=== PATIENT | female | born 1995 | race Caucasian/White ===

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

== ENCOUNTER 2017-03-24 14:28 | Emergency (ER) | payer OTHER ==
[~2017-03-24 14:28] MED LIST changes: +CEPH-460 PO; -CYCL5TAB PO; -IBUP800T23 PO; -KETO10 PO
[2017-03-24 14:30] VITALS: BP 128/63; PULSE 77; RESP 20; TEMP 98.3; O2SAT 97
[2017-03-24] MEDS ORDERED: TRAM50TA PO (15:05)
--- NOTE | 2017-03-24 15:05 | PD ---
HPI Chief Complaint: Pain: Acute or Chronic Time Seen by Provider: 14:51 Travel History International Travel<30 days: No Contact w/Intl Traveler<30days: No Traveled to known affect area: No History of Present Illness HPI The patient was seen and examined in the presence of the nurse. This patient complains of having migraine headache. She gets one or 2 per month on average. She usually takes Advil when she gets one. Symptom severity is moderate. Duration one day. No fever or head injury. PFSH Past Medical History Medical History: Denies Significant Hx Developmental Delay: No Diminished Hearing: No Immunizations Current: Yes (UTD) Tetanus Vaccination: > 5 Years Influenza Vaccination: No ?: Unknown LMP: MAR 06 2017 Past Surgical History Surgical History: No Previous Surgery Social History Alcohol Use: No Tobacco Use: No Substance Use: No Allergies-Medications (Allergen,Severity, Reaction): Coded Allergies: No Known Allergies (Unverified , 03/24/17) Reported Meds & Prescriptions Reported Meds & Active Scripts Active No Active Prescriptions or Reported Medications Review of Systems General / Constitutional: No: Fever HENT: Positive: Headaches Cardiovascular: No: Chest Pain or Discomfort Physical Exam Narrative GENERAL: Well-nourished, well-developed patient in no apparent distress. SKIN: Focused skin assessment reveals no rash and nodules. Skin is Warm and dry. HEAD: Atraumatic. Normocephalic. EYES: Pupils equal and round. No scleral icterus. No injection or drainage. ENT: No nasal bleeding or discharge. Mucous membranes pink and moist. NECK: Trachea midline. No JVD. CARDIOVASCULAR: Regular rate and rhythm. No murmur appreciated. RESPIRATORY: No accessory muscle use. Clear to auscultation. Breath sounds equal bilaterally. GASTROINTESTINAL: Abdomen soft, non-tender, nondistended. Hepatic and splenic margins not palpable. MUSCULOSKELETAL: No obvious deformities. No clubbing. No cyanosis. No edema. NEUROLOGICAL: Awake and alert. No obvious cranial nerve deficits. Motor grossly within normal limits. Normal speech. PSYCHIATRIC: Appropriate mood and affect; insight and judgment normal. Data Data Last Documented VS Vital Signs Date Time Temp Pulse Resp B/P (MAP) Pulse Ox O2 Delivery O2 Flow Rate FiO2 03/24/17 14:30 98.3 77 20 128/63 (84) 97 MDM Medical Decision Making Medical Screen Exam Complete: Yes Emergency Medical Condition: Yes Medical Record Reviewed: Yes Differential Diagnosis Differential diagnosis includes migraine, tension headache, cluster headache, meningitis. Narrative Course I have reviewed the patient's electronic medical record. Patient's exam and vital signs are normal. No red flags to suggest emergent imaging is indicated. Wrote her a few tramadol on prescription and recommend primary care follow-up Diagnosis Primary Impression: Migraine headache Qualified Codes: G43.109 - Migraine with aura, not intractable, without status migrainosus Additional Instructions: The patient was advised to follow up with their physician and return if they worsen. Med/Other Pt SpecificInfo: Other Scripts No Active Prescriptions or Reported Meds Disposition: 01 DISCHARGE HOME Condition: Stable Nahdi Christine MD Mar 24, 2017 15:05
== END 2017-03-24 15:16 | disposition home or self-care (01) ==
LOC: PHED 14:28
DX: G43.109 Migraine with aura, not intractable, without status migrainosus (principal)
CPT/HCPCS: 99283

== ENCOUNTER 2017-03-28 18:18 | Emergency (ER) | payer OTHER ==
[~2017-03-28 18:18] MED LIST changes: -CEPH-460 PO; +TRAM50TA PO
[2017-03-28 18:22] VITALS: BP 122/57; PULSE 90; RESP 20; TEMP 98.1; O2SAT 100
[2017-03-28 18:42] LABS: BLOOD, URINE LARGE (NEG); GLUCOSE,URINE NEG (NEG); KETONE, URINE NEG (NEG); NITRITE,URINE NEG (NEG)
[2017-03-28] MEDS ORDERED: KETOROLAC TROMETHAMINE 30 MG/ML (IVP) VIAL IV PUSH ONE (18:45)
--- NOTE | 2017-03-28 18:51 | PD ---
HPI Chief Complaint: Complaint Time Seen by Provider: 18:40 Travel History International Travel<30 days: No Contact w/Intl Traveler<30days: No Traveled to known affect area: No History of Present Illness HPI This is a 21-year-old female who presents to the emergency department with 1 week of back pain, constant, moderate severity described as a soreness associated with dysuria, frequency and urgency. She was seen here several days ago and treated for migraine headache. She says she had her back pain at that time. She denies any fevers or chills and denies any nausea or vomiting. She denies any vaginal discharge. She doesn't think she could be and her last menstrual cycle was 3 weeks ago. PFSH Past Medical History Medical History: Denies Significant Hx Developmental Delay: No Diminished Hearing: No Immunizations Current: Yes (UTD) Influenza Vaccination: No ?: Not LMP: NOW, STATES SHE HAS TWO A MONTH ?? Past Surgical History Surgical History: No Previous Surgery Social History Alcohol Use: No Tobacco Use: No Substance Use: No Allergies-Medications (Allergen,Severity, Reaction): Coded Allergies: No Known Allergies (Unverified , 03/28/17) Reported Meds & Prescriptions Reported Meds & Active Scripts Active Tramadol (Tramadol HCl) 50 Mg Tab 50 Mg PO Q6H PRN Review of Systems Except as stated in HPI: all other systems reviewed are Neg Physical Exam Narrative GENERAL:Well appearing, no acute distress SKIN: Focused skin assessment warm and dry. HEAD: Atraumatic. Normocephalic. EYES: Pupils equal and round. No injection or drainage. ENT: Moist mucous membranes NECK: Trachea midline. CARDIOVASCULAR: Regular rate and rhythm. No murmur appreciated. RESPIRATORY: Clear to auscultation. Breath sounds equal bilaterally. GASTROINTESTINAL: Abdomen soft, non-tender, nondistended. : Right CVA tenderness. MUSCULOSKELETAL: No obvious deformities. NEUROLOGICAL: Awake and alert. No obvious cranial nerve deficits. Moving all extremities. PSYCHIATRIC: Appropriate mood and affect; insight and judgment normal. Data Data Last Documented VS Vital Signs Date Time Temp Pulse Resp B/P (MAP) Pulse Ox O2 Delivery O2 Flow Rate FiO2 03/28/17 18:22 98.1 90 20 122/57 (78) 100 Orders Orders Urinalysis - C+S If Indicated (03/28/17 18:32) Complete Blood Count With Diff (03/28/17 18:43) Comprehensive Metabolic Panel (03/28/17 18:43) ^ Insert Iv (03/28/17 18:43) Ed Urine Pregnancytest Poc (03/28/17 18:43) Ketorolac Inj (Toradol Inj) (03/28/17 18:45) Urine Culture (03/28/17 18:35) Ceftriaxone Inj (Rocephin Inj) (03/28/17 19:30) Sodium Chlor 0.9% 1000 Ml Inj (Ns 1000 M (03/28/17 19:30) Labs Laboratory Tests Test 03/28/17 18:35 03/28/17 19:05 Urine Collection Type CLEAN CATCH Urine Color YELLOW Urine Turbidity MOD Urine pH 6.0 Urine Specific [place] 1.017 Urine Protein 100 mg/dL Urine Glucose (UA) NEG mg/dL Urine Ketones NEG mg/dL Urine Occult Blood LARGE Urine Nitrite NEG Urine Bilirubin NEG Urine Leukocyte Esterase MOD Urine RBC 25-49 /hpf Urine WBC INNUM /hpf Urine WBC Clumps MANY Urine Squamous Epithelial Cells 0-5 /hpf Urine Bacteria MOD /hpf Urine Mucus OCC /lpf Microscopic Urinalysis Comment CULTURE INDICATED White Blood Count 7.9 TH/MM3 Red Blood Count 3.98 MIL/MM3 Hemoglobin 11.2 GM/DL Hematocrit 33.5 % Mean Corpuscular Volume 84.4 FL Mean Corpuscular Hemoglobin 28.1 PG Mean Corpuscular Hemoglobin Concent 33.3 % Red Cell Distribution Width 14.2 % Platelet Count 218 TH/MM3 Mean Platelet Volume 10.6 FL Neutrophils (%) (Auto) 68.0 % Lymphocytes (%) (Auto) 18.0 % Monocytes (%) (Auto) 11.9 % Eosinophils (%) (Auto) 1.6 % Basophils (%) (Auto) 0.5 % Neutrophils # (Auto) 5.5 TH/MM3 Lymphocytes # (Auto) 1.4 TH/MM3 Monocytes # (Auto) 0.9 TH/MM3 Eosinophils # (Auto) 0.1 TH/MM3 Basophils # (Auto) 0.0 TH/MM3 CBC Comment DIFF FINAL Differential Comment Blood Urea Nitrogen 12 MG/DL Creatinine 0.66 MG/DL Random Glucose 88 MG/DL Total Protein 7.1 GM/DL Albumin 3.8 GM/DL Calcium Level 8.1 MG/DL Alkaline Phosphatase 52 U/L Aspartate Amino Transf (AST/SGOT) 16 U/L Alanine Aminotransferase (ALT/SGPT) 19 U/L Total Bilirubin 0.4 MG/DL Sodium Level 139 MEQ/L Potassium Level 3.8 MEQ/L Chloride Level 105 MEQ/L Carbon Dioxide Level 27.4 MEQ/L Anion Gap 7 MEQ/L Estimat Glomerular Filtration Rate 115 ML/MIN MDM Medical Decision Making Medical Screen Exam Complete: Yes Emergency Medical Condition: Yes Interpretation(s) Afebrile, no tachycardia, normotensive No leukocytosis Urinary tract infection present Differential Diagnosis Pyelonephritis, urinary tract infection, nephrolithiasis, appendicitis, cholecystitis Narrative Course This is a 21-year-old female who presents to the emergency department with back pain and dysuria. She has reassuring vital signs. Labs are obtained which are reassuring. Urinalysis demonstrates urinary tract infection. Patient symptoms are consistent with pyelonephritis. She was given a dose of IV ceftriaxone and will be discharged on Keflex. I don't think she requires inpatient antibiotics at this time as she is nontoxic in her labs are reassuring. Diagnosis Primary Impression: Pyelonephritis Patient Instructions: General Instructions Additional Instructions: If you develop fever, persistent vomiting, back pain, or inability to eat return to the emergency department as your urine infection may have progressed to a kidney infection. Complete your antibiotics as prescribed. Stay well hydrated with Gatorade or water. Followup with your primary care physician in 2-3 days if your symptoms have not resolved. Med/Other Pt SpecificInfo: Prescription(s) given Scripts Cephalexin (Keflex) 500 Mg Cap 500 MG PO Q12H for Infection for 7 Days, #14 CAP 0 Refills Prov: Cristina Partida MD 03/28/17 Disposition: 01 DISCHARGE HOME Condition: Stable Cristina Partida MD Mar 28, 2017 18:51
[2017-03-28 18:58] LABS: URINE COLOR YELLOW (YELLW/STRAW)
[2017-03-28 18:59] LABS: MUCUS URINE OCC /lpf (OCC); WBC, URINE INNUM /hpf (0-5)
[2017-03-28 19:03] LABS: BACTERIA, URINE MOD /hpf; SQUAMOUS EPITHELIAL CELL URINE 0-5 /hpf (0-5)
[2017-03-28 19:08] LABS: METHOD OF COLLECTION CLEAN CATCH
[2017-03-28 19:09] LABS: COMMENT (UR) CULTURE INDICATED; CULTURE IF INDICATED CULTURE INDICATED
[2017-03-28 19:16] LABS: AUTOMATED NEUTROPHIL # 5.5 TH/MM3 (1.8-7.7); BASOPHIL % 0.5 % (0.0-2.0); EOSINOPHIL # 0.1 TH/MM3 (0-0.4); EOSINOPHIL % 1.6 % (0.0-4.0); HEMATOCRIT 33.5 % (35.0-46.0); HEMO FLAGS DIFF FINAL; LYMPHOCYTE # 1.4 TH/MM3 (1.0-4.8); MEAN CELL VOLUME 84.4 FL (80.0-100.0); MEAN CORPUSCULAR HEMOGLOBIN 28.1 PG (27.0-34.0); MEAN CORPUSCULAR HGB CONC 33.3 % (32.0-36.0); MONO % 11.9 % (0.0-8.0); PLATELET COUNT 218 TH/MM3 (150-450); RED BLOOD COUNT 3.98 MIL/MM3 (4.00-5.30); RED CELL DISTRIBUTION WIDTH 14.2 % (11.6-17.2); WHITE BLOOD COUNT 7.9 TH/MM3 (4.0-11.0)
[2017-03-28] MEDS ORDERED: cefTRIAXone INJ 1,000 MG in SODIUM CHLORIDE 0.9% INJ 100 ML IV ONE (19:30)
[2017-03-28] MEDS ORDERED: SODIUM CHLOR 0.9% 1000 ML INJ 1,000 ML IV ONE (19:30)
[2017-03-28 19:56] LABS: CHLORIDE 105 MEQ/L (98-107); POTASSIUM 3.8 MEQ/L (3.5-5.1); SODIUM (NA) 139 MEQ/L (136-145)
[2017-03-28 20:00] LABS: ANION GAP 7 MEQ/L (5-15); BICARBONATE 27.4 MEQ/L (21.0-32.0); BLOOD UREA NITROGEN 12 MG/DL (7-18)
[2017-03-28 20:03] LABS: ALT (GPT) 19 U/L (9-42); AST (GOT) 16 U/L (16-38); GLOMERULAR FILTRATION RATE 115 ML/MIN (>89)
[2017-03-28 20:04] LABS: TOTAL BILIRUBIN ADULT 0.4 MG/DL (0.2-1.0)
[2017-03-28 20:06] LABS: ALKALINE PHOSPHATASE 52 U/L (45-117)
[2017-03-28] MEDS ORDERED: CEPH-460 PO (20:24)
[2017-03-28] MEDS ORDERED: NAPR500T PO (20:25)
[2017-03-28 20:53] VITALS: BP 113/70; PULSE 74; RESP 20; O2SAT 100
[2017-03-28 21:00] VITALS: RESP 20
== END 2017-03-28 21:16 | disposition home or self-care (01) ==
LOC: PHED 18:18
DX: N12 Tubulo-interstitial nephritis, not specified as acute or chronic (principal); B96.4 Proteus (mirabilis) (morganii) as the cause of diseases classified elsewhere
CPT/HCPCS: 80053; 81001; 84703; 85025; 87077; 87086; 87186; 96361; 96365; 96375; 99284; J0696; J1885; J7030

== ENCOUNTER 2018-05-13 03:15 | Inpatient (IN) ==
--- NOTE | 2018-05-13 04:12 | P.HPOB ---
History of Present Illness Primary Care Physician: Dr. Piyush Santos History of Present Illness: 22-year-old female at 38/5 who presents to the OB ED for leakage of fluid. States that she had a gush of fluid around 1:48 AM this morning. States that she is having some slight contractions. Endorses good movement. Denies vaginal bleeding, chest pain, shortness of breath, nausea and vomiting. Last OB ultrasound was on 04/27/18. History of LGA fetus and passed 1 hr GTT, however ultrasound states that size is appropriate for gestational age. Review of Systems All other systems reviewed negative except as stated in HPI PMFSH - Medical / Surgical Hx Neg / Unobtainable Surgical History: No Previous Surgery - Medical History Medical History: Medical History (Last Updated 05/13/18 @ 04:22 by Felicita Joseph MD, R2) No significant past surgical history (Acute) No significant past medical history - Family History Family History: Family History (Last Updated 05/13/18 @ 04:22 by Felicita Joseph MD, R2) Other No significant family history - Social History I have reviewed the patient's Social History: Yes - Tobacco History Smoking Status: Never smoker Medications and Allergies Allergies Allergy/AdvReac Type Severity Reaction Status Date / Time No Known Allergies Allergy NONE Uncoded 05/13/18 03:55 Home Medications Medication Instructions Recorded Confirmed Type Vitamin 1 tab PO DAILY 05/13/18 05/13/18 History iron 1 tab PO DAILY 05/13/18 05/13/18 History Exam Vital signs: Vital Signs 05/13/18 03:39 Temperature 98.9 F Pulse Rate 125 H Respiratory Rate 18 Blood Pressure 114/55 L Intake & Output 05/12/18 05/12/18 05/13/18 06:59 18:59 06:59 Weight 101.151 kg Narrative: Cardio: Regular rhythm, no murmurs rubs or gallops Pulmonary: Clear to auscultation bilaterally, no wheezes or crackles Cervix: 1 Effacement: 50 position: -2 FHTs: 150s variability: minimal Caprini VTE Risk Assessment Caprini VTE Risk Assessment: No/Low Risk (score <= 1) Caprini Risk Assessment Model: Point Value = 1 Point Value = 2 Point Value = 3 Point Value = 5 Age 41-60 Minor surgery BMI > 25 kg/m2 Swollen legs Varicose veins or History of unexplained or recurrent spontaneous Oral contraceptives or hormone replacement Sepsis (< 1 month) Serious lung disease, including pneumonia (< 1 month) Abnormal pulmonary function Acute myocardial infarction Congestive heart failure (< 1 month) History of inflammatory bowel disease Medical patient at bed rest Age 61-74 Arthroscopic surgery Major open surgery (> 45 min) Laparoscopic surgery (> 45 min) Malignancy Confined to bed (> 72 hours) Immobilizing plaster cast Central venous access Age >= 75 History of VTE Family history of VTE Factor V Leiden Prothrombin [id number] Lupus anticoagulant Anticardiolipin antibodies Elevated serum homocysteine Heparin-induced thrombocytopenia Other congenital or acquired thrombophilia Stroke (< 1 month) Elective arthroplasty Hip, pelvis, or leg fracture Acute spinal cord injury (< 1 month) Prophylaxis Regimen: Total Risk Factor Score Risk Level Prophylaxis Regimen 0-1 Low Early ambulation 2 Moderate Order ONE of the following: *Sequential Compression Device (SCD) *Heparin 5000 units SQ BID 3-4 Higher Order ONE of the following medications: *Heparin 5000 units SQ TID *Enoxaparin/Lovenox 40 mg SQ daily (WT < 150 kg, CrCl > 30 mL/min) *Enoxaparin/Lovenox 30 mg SQ daily (WT < 150 kg, CrCl > 10-29 mL/min) *Enoxaparin/Lovenox 30 mg SQ BID (WT < 150 kg, CrCl > 30 mL/min) AND/OR *Sequential Compression Device (SCD) 5 or more Highest Order ONE of the following medications: *Heparin 5000 units SQ TID (Preferred with Epidurals) *Enoxaparin/Lovenox 40 mg SQ daily (WT < 150 kg, CrCl > 30 mL/min) *Enoxaparin/Lovenox 30 mg SQ daily (WT < 150 kg, CrCl > 10-29 mL/min) *Enoxaparin/Lovenox 30 mg SQ BID (WT < 150 kg, CrCl > 30 mL/min) AND *Sequential Compression Device (SCD) Assessment and Plan - Diagnosis (1) 38 weeks gestation of Code(s): Z3A.38 - 38 weeks gestation of Status: Acute Plan: 22-year-old female at 38/5 presents to the ED for leakage of fluid. -Amnisure positive -rapid GBS and hepatitis profile ordered -Last ultrasound was on 04/27/18, size appropriate for gestational age. No anomaly seen. Normal amniotic fluid. -Cervix: 1, 50, -2 -FHTs: 150s, minimal variability, no decels -Admit to L & D -Dr. Santos notified.
[2018-05-13] MEDS ORDERED: Citric Acid/Sodium Citrate Liq 30 ML UDC PO SCH (04:15)
[2018-05-13] MEDS ORDERED: Sod Chloride 0.9% Inj 1,000 ML IV.CONT PRN (04:15)
[2018-05-13] MEDS ORDERED: Sodium Chlor 0.9% Inj 500 ML IV.SIG PRN (04:15)
[2018-05-13] MEDS ORDERED: fentaNYL Citrate Inj 100 MCG/2 ML Ampul IV.PUSH PRN (04:15)
[2018-05-13] MEDS ORDERED: Naloxone Inj 0.4 MG/ML Vial IV.PUSH PRN (04:15)
[2018-05-13] MEDS ORDERED: Oxytocin 30 Units/500ml Premix 30 UNITS/500 ML BAG IV.SIG ONE (04:15)
[2018-05-13 04:49] LABS: Baso % (Auto) 0.3 % (0.0-2.0); Eos # (Auto) 0.1 th/mm3 (0.0-0.4); Eos % (Auto) 1.2 % (0.0-4.0); Hematocrit 33.7 % (35.0-46.0); Hemoglobin 10.9 gm/dL (11.6-15.3); Lymph # (Auto) 1.1 th/mm3 (1.0-4.8); Lymph % (Auto) 15.3 % (9.0-44.0); Mean Corpuscular HGB Conc 32.3 % (32.0-36.0); Mean Corpuscular Hemoglobin 26.8 pg (27.0-34.0); Mean Corpuscular Volume 82.9 fL (80.0-100.0); Mean Platelet Volume 11.3 fL (7.0-11.0); Mono # (Auto) 0.7 th/mm3 (0.0-0.9); Mono % (Auto) 9.7 % (0.0-8.0); Neut # (Auto) 5.4 th/mm3 (1.8-7.7); Neut % (Auto) 73.5 % (16.0-70.0); Platelet Count 190 th/mm3 (150-450); Red Blood Count 4.06 mil/mm3 (4.00-5.30); Red Cell Distribution Width 15.1 % (11.6-17.2); White Blood Count 7.3 th/mm3 (4.0-11.0)
[2018-05-13 04:57] LABS: Bacteria,Urine Occasional /hpf; Bilirubin,Urine Negative (Negative); Clarity,Urine Cloudy (Clear); Color,Urine Yellow (Yellw/Straw); Glucose,Urine (UA) Negative (Negative); Hyaline Casts,Urine 1 /lpf (0-3); Leukocyte Esterase,Urine Small (Negative); Mucus,Urine Moderate /lpf (Occasional); Nitrite,Urine Negative (Negative); Specific Gravity,Urine 1.016 (1.002-1.035); Squamous Epithelial Cell,Urine 19 /hpf (0-5)
[2018-05-13 04:59] LABS: Amphetamine Urine With Conf Neg (Neg); Benzodiazepine Urine With Conf Neg (Neg)
[2018-05-13 06:03] LABS: Hepatitis A IgM Antibody Nonreactive (Nonreactive); Hepatitits B Surface Antigen Nonreactive (Nonreactive)
--- NOTE | 2018-05-13 07:15 | P.OBLABOR ---
Subjective Interval history: 22YO at 38/5 weeks in latent labor. Cervix is 1/50/-2. FHT with Cat 1 tracing, BL 130, reactive, moderate now (previously minimal), and no decels. FHT Lab called to report that GBS test aborted and are running a second time. Will re-do the test due to the delay. Also will give 500 ml bolus LR. Objective Vital Signs: Vital Signs - 8 hr 05/13/18 03:39 05/13/18 05:34 05/13/18 05:35 Temperature 98.9 F Pulse Rate 125 H 100 H Respiratory Rate 18 18 Blood Pressure 114/55 L 117/65 Objective: Pelvic Exam: Cervix: Dilatation: 1 Effacement: 50 Station: -2 Presentation: vtx Membranes: ruptured - SROM 01:48 on 05/13/18 with clear fluid Uterine Contractions: irregular, q5-10 minutes FHT's: Category: 1 Baseline: 130 Reactive: yes Variability: moderate Decels: none; however, no accels either Assessment and Plan - Diagnosis (1) 38 weeks gestation of Code(s): Z3A.38 - 38 weeks gestation of Status: Acute Plan: 22-year-old female at 38/5 presents to the ED for leakage of fluid. Cervix 1/50/-2, GBS retaken, adding 500 ml bolus, FHT w/Cat 1, BL 130, reactive , moderate variability, no accels or decels. 1. Routine care -Amnisure positive -rapid GBS and hepatitis profile ordered; GBS retaken at 06:55 due to lab call indicating 1st test aborted on testing in lab -Add LR 500 ml IVF bolus -Last ultrasound was on 04/27/18, size appropriate for gestational age. No anomaly seen. Normal amniotic fluid. -Cervix: 1, 50, -2 -FHTs: 130s, now moderate variability, no decels or accels -Hold Pitocin until GBS status known Pt DW DR Galarza
[2018-05-13] MEDS ORDERED: Oxytocin 30 Units/500ml Premix 30 UNITS/500 ML BAG IV.SIG PRN (08:32)
[2018-05-13] MEDS ORDERED: Oxytocin 30 Units/500ml Premix 30 UNITS/500 ML BAG IV.CONT PRN (12:00)
[2018-05-13] MEDS: fentaNYL Citrate Inj 100 MCG/2 ML Ampul IV.PUSH PRN ×2 (13:14→15:23)
--- NOTE | 2018-05-13 15:37 | P.OBLABOR ---
Subjective Interval history: Evaluated with Dr. Flynn at about 2:30 PM. Patient resting in bed. She feels contractions but they are not very strong at this time. She is feeling baby move. No chest pain, shortness of breath. No nausea/vomiting. No other complaints at this time. Objective Vital Signs: Vital Signs - 8 hr 05/13/18 07:36 05/13/18 07:38 05/13/18 07:50 Temperature Pulse Rate 104 H 105 H Respiratory Rate 14 Blood Pressure 100/60 05/13/18 08:10 05/13/18 08:40 05/13/18 08:55 Temperature Pulse Rate 102 H 103 H 113 H Respiratory Rate Blood Pressure 113/61 05/13/18 09:05 05/13/18 09:15 05/13/18 09:17 Temperature 98.9 F Pulse Rate 107 H 110 H Respiratory Rate Blood Pressure 113/59 L 05/13/18 09:20 05/13/18 09:25 05/13/18 09:40 Temperature Pulse Rate 106 H 111 H 113 H Respiratory Rate 16 Blood Pressure 113/58 L 05/13/18 09:55 05/13/18 10:00 05/13/18 10:05 Temperature Pulse Rate 110 H 106 H 105 H Respiratory Rate Blood Pressure 113/61 05/13/18 10:10 05/13/18 10:25 05/13/18 10:30 Temperature 99.6 F Pulse Rate 110 H 114 H Respiratory Rate Blood Pressure 05/13/18 10:35 05/13/18 10:40 05/13/18 10:50 Temperature Pulse Rate 108 H 100 H 105 H Respiratory Rate Blood Pressure 118/64 05/13/18 10:55 05/13/18 11:10 05/13/18 11:25 Temperature 99.7 F H Pulse Rate 105 H 93 H 121 H Respiratory Rate Blood Pressure 110/65 05/13/18 11:30 05/13/18 11:40 05/13/18 12:00 Temperature 99.2 F 99.2 F Pulse Rate 119 H 99 H 101 H Respiratory Rate 14 Blood Pressure 115/58 L 115/64 05/13/18 12:12 05/13/18 12:40 05/13/18 12:55 Temperature Pulse Rate 98 H 97 H 102 H Respiratory Rate Blood Pressure 117/65 05/13/18 13:05 05/13/18 13:25 11/08/18 13:40 Temperature Pulse Rate 98 H 94 H 99 H Respiratory Rate 16 Blood Pressure 120/60 110/75 05/13/18 13:55 05/13/18 14:10 05/13/18 14:28 Temperature Pulse Rate 98 H 109 H 95 H Respiratory Rate Blood Pressure 112/62 111/62 05/13/18 14:40 05/13/18 14:55 05/13/18 14:59 Temperature 98.7 F Pulse Rate 94 H 103 H 104 H Respiratory Rate 16 Blood Pressure 109/60 118/65 Objective: Pelvic Exam: Cervix: mid-position Dilatation: 1-2 cm Effacement: 50% Station: -1 Presentation: vertex Membranes: ruptured Uterine Contractions: q3 mins FHT's: Category: 1 Baseline: 130s Reactive: yes Variability: moderate Decels: none Assessment and Plan - Diagnosis (1) 38 weeks gestation of Code(s): Z3A.38 - 38 weeks gestation of Status: Acute Plan: 22-year-old female at 38/5 presents to the ED for SROM. Cervix 1-2/50%/-1 , GBS retaken, category one tracing, GBS negative 1. Routine care -Last ultrasound was on 04/27/18, size appropriate for gestational age. No anomaly seen. Normal amniotic fluid. -Pitocin 08/07/29, currently at 10 milliunits/min SDW Dr. Flynn, DW Dr. Santos
[2018-05-13] MEDS ORDERED: fentaNYL 2MCG-Bupiv 0.125% Epi 150 ML EPIDURAL ONE (16:27)
[2018-05-13] MEDS ORDERED: Lidocaine PF 1% Inj 5 ML Vial ONE (16:32)
[2018-05-13] MEDS ORDERED: Lidocaaine 1.5%/Epinephrine 1:200,000 PF Inj 5 ML Amp ONE (16:32)
[2018-05-13] MEDS ORDERED: fentaNYL 2MCG-Bupiv 0.125% Epi 150 ML EPIDURAL PRN (17:30)
[2018-05-13] MEDS ORDERED: fentaNYL Citrate Inj 100 MCG/2 ML Ampul EPIDURAL ONE (17:30)
[2018-05-14] MEDS ORDERED: Naloxone Inj 0.4 MG/ML Vial IV.PUSH PRN (01:01)
[2018-05-14] MEDS ORDERED: Acetaminophen 325 MG Tablet PO PRN (01:01)
[2018-05-14] MEDS ORDERED: Witch Hazel 50%/Glyderin 12.5% 40 Pad Jar RECTAL PRN (01:01)
[2018-05-14] MEDS ORDERED: Oxytocin 30 Units/500ml Premix 30 UNITS/500 ML BAG IV.CONT PRN (01:01)
[2018-05-14] MEDS ORDERED: Benzocaine 20% Top Spray 60 ML Can TOPICAL PRN (01:01)
[2018-05-14] MEDS ORDERED: Bisacodyl 10 MG Supp RECTAL PRN (01:01)
[2018-05-14] MEDS ORDERED: Zolpidem Tartrate 5 MG Tablet PO PRN (01:01)
--- NOTE | 2018-05-14 01:01 | P.OBDELI ---
Weeks Gestation: 38 Patient Started Active Labor: Yes Anesthesia: Epidural, Lidocaine local to perineum Episiotomy: midline Vaginal Delivery: Vacuum (Kiwi vacuum applied at +2 station at the focal point; traction applied; no pop-offs; no maternal injury) Presentation: Occiput posterior, Vertex Nuchal Cord: None Delayed Cord Clamping (45 sec): Yes Shoulder Dystocia: Suprapubic pressure given Placenta: Spontaneous delivery Laceration: Episiotomy, 3 deg Repair: Chromic running, Vicryl interrupted Estimated blood loss (mL): 300 Infant: Male Infant Male A Delivery Date: 05/14/18 Infant Delivery Time: 00:14 Weight: 4280 kg score (1 min): 8 score (5 min): 9 Additional Information: Dr Roberson supervising and delivered by Dr Santos
--- NOTE | 2018-05-14 08:19 | P.PNOB ---
Subjective Post day: 0 Interval history: Ms. Fontenot is a 22-year-old on day 0. Pain is controlled, taking p.o., voiding, but has not ambulated or had flatus or a BM yet. She is breast- feeding. Lochia is about the same as a period in reducing there are no clots. Patient will see a coding consultant today. Patient considering her control options. There is no chest pain, shortness of breath, nausea, vomiting , diarrhea, or abdominal pain or leg pain. Objective Vital Signs/I&O: Vital Signs 05/13/18 08:10 05/13/18 08:40 05/13/18 08:55 Temperature Pulse Rate 102 H 103 H 113 H Respiratory Rate Blood Pressure 113/61 05/13/18 09:05 05/13/18 09:15 05/13/18 09:17 Temperature 98.9 F Pulse Rate 107 H 110 H Respiratory Rate Blood Pressure 113/59 L 05/13/18 09:20 05/13/18 09:25 05/13/18 09:40 Temperature Pulse Rate 106 H 111 H 113 H Respiratory Rate 16 Blood Pressure 113/58 L 05/13/18 09:55 05/13/18 10:00 05/13/18 10:05 Temperature Pulse Rate 110 H 106 H 105 H Respiratory Rate Blood Pressure 113/61 05/13/18 10:10 05/13/18 10:25 05/13/18 10:30 Temperature 99.6 F Pulse Rate 110 H 114 H Respiratory Rate Blood Pressure 05/13/18 10:35 05/13/18 10:40 05/13/18 10:50 Temperature Pulse Rate 108 H 100 H 105 H Respiratory Rate Blood Pressure 118/64 05/13/18 10:55 05/13/18 11:10 05/13/18 11:25 Temperature 99.7 F H Pulse Rate 105 H 93 H 121 H Respiratory Rate Blood Pressure 110/65 05/13/18 11:30 05/13/18 11:40 05/13/18 12:00 Temperature 99.2 F 99.2 F Pulse Rate 119 H 99 H 101 H Respiratory Rate 14 Blood Pressure 115/58 L 115/64 05/13/18 12:12 05/13/18 12:40 05/13/18 12:55 Temperature Pulse Rate 98 H 97 H 102 H Respiratory Rate Blood Pressure 117/65 05/13/18 13:05 05/13/18 13:25 05/13/18 13:40 Temperature Pulse Rate 98 H 94 H 99 H Respiratory Rate 16 Blood Pressure 120/60 110/75 05/13/18 13:55 05/13/18 14:10 05/13/18 14:28 Temperature Pulse Rate 98 H 109 H 95 H Respiratory Rate Blood Pressure 112/62 111/62 05/13/18 14:40 05/13/18 14:55 05/13/18 14:59 Temperature 98.7 F Pulse Rate 94 H 103 H 104 H Respiratory Rate 16 Blood Pressure 109/60 118/65 05/13/18 15:10 05/13/18 15:25 05/13/18 15:30 Temperature Pulse Rate 103 H 92 H 99 H Respiratory Rate Blood Pressure 127/60 05/13/18 15:40 05/13/18 16:00 05/13/18 16:10 Temperature Pulse Rate 116 H 125 H Respiratory Rate 14 Blood Pressure 118/63 116/58 L 05/13/18 16:35 05/13/18 16:51 05/13/18 16:55 Temperature Pulse Rate 111 H 121 H 99 H Respiratory Rate Blood Pressure 104/85 115/59 L 111/54 L 05/13/18 17:00 05/13/18 17:10 05/13/18 17:15 Temperature 98.7 F Pulse Rate 108 H 105 H Respiratory Rate Blood Pressure 113/53 L 104/52 L 05/13/18 17:25 05/13/18 17:45 05/13/18 17:55 Temperature Pulse Rate 113 H 103 H 103 H Respiratory Rate Blood Pressure 120/59 L 111/62 05/13/18 18:10 05/13/18 18:25 05/13/18 18:30 Temperature Pulse Rate 114 H 120 H 147 H Respiratory Rate Blood Pressure 100/77 115/66 110/53 L 05/13/18 18:50 05/13/18 19:15 05/13/18 19:18 Temperature 99.0 F Pulse Rate 144 H 106 H Respiratory Rate 18 Blood Pressure 109/52 L 83/48 L 05/13/18 19:25 05/13/18 19:45 05/13/18 19:50 Temperature Pulse Rate 109 H 105 H 103 H Respiratory Rate Blood Pressure 109/58 L 114/58 L 05/13/18 20:05 05/13/18 20:15 05/13/18 20:16 Temperature Pulse Rate 114 H 113 H 110 H Respiratory Rate Blood Pressure 123/62 98/41 L 05/13/18 20:20 05/13/18 20:25 05/13/18 21:00 Temperature 99.1 F Pulse Rate 120 H 123 H 115 H Respiratory Rate 18 Blood Pressure 116/61 05/13/18 21:15 05/13/18 21:20 05/13/18 21:30 Temperature Pulse Rate 129 H 118 H 134 H Respiratory Rate 18 18 Blood Pressure 111/57 L 100/51 L 112/63 05/13/18 21:45 05/13/18 22:05 05/13/18 22:10 Temperature Pulse Rate 127 H 124 H 125 H Respiratory Rate Blood Pressure 114/59 L 101/53 L 05/13/18 22:25 05/13/18 23:05 05/13/18 23:25 Temperature Pulse Rate 127 H 120 H 138 H Respiratory Rate Blood Pressure 101/30 L 135/62 150/75 H 05/14/18 00:00 05/14/18 00:31 05/14/18 00:45 Temperature Pulse Rate 113 H 112 H 114 H Respiratory Rate Blood Pressure 119/45 L 106/69 122/53 L 05/14/18 01:00 05/14/18 01:01 05/14/18 01:15 Temperature 98.9 F Pulse Rate 113 H 120 H Respiratory Rate 18 18 Blood Pressure 118/62 92/43 L 05/14/18 01:30 05/14/18 01:45 05/14/18 06:26 Temperature Pulse Rate 112 H 96 H Respiratory Rate 18 18 Blood Pressure 115/57 L 114/66 05/14/18 06:27 05/14/18 07:26 05/14/18 07:30 Temperature 98.5 F 97.6 F Pulse Rate 105 H Respiratory Rate 16 18 Blood Pressure 105/64 Intake & Output 05/13/18 05/14/18 05/14/18 18:59 06:59 18:59 Intake Total 1999 1000 / 1000 Balance 1999 1000 / 1000 Weight 101 kg Intake: IV 1999 1000 / 1000 LR 1000 mL Inj 1,000 ML @ 125 1000 / 1000 1000 / 1000 mls/hr IV.CONT .Q8H [facility] Rx#: [id number] LR 1000 mL Inj 1,000 ML @ 3000 1000 / 1000 mls/hr IV.SIG UNSCH PRN Rx#: [id number] Other: Weight On Admission 101 kg Result Diagrams: 05/13/18 04:10 Objective Remarks: GENERAL: Well-nourished, well-developed patient. CARDIOVASCULAR: Regular rate and rhythm without murmurs, gallops, or rubs. RESPIRATORY: Breath sounds equal bilaterally. No accessory muscle use. ABDOMEN/GI: Abdomen soft, non-tender. Fundus: Firm, non-tender at umbilicus. GENITOURINARY: Light to moderate bleeding. EXTREMITIES: No cyanosis or edema, non-tender, without signs of DVT. Medications and IVs: Active Medications Acetaminophen (Tylenol) 650 mg PO Q4H PRN PRN Reason: PAIN SCALE 1 TO 2 Al Hydroxide/Mg Hydroxide (Milk Of Magnesia Liq) 30 ml PO Q12H PRN PRN Reason: Mild Constipation Benzocaine (Americaine 20% Top [place]) 1 spray TOPICAL Q4H PRN PRN Reason: For Perineum Discomfort Last Admin: 05/14/18 03:06 Dose: 1 spray Bisacodyl (Dulcolax Supp) 10 mg RECTAL DAILY PRN PRN Reason: SEVERE CONSITIPATION Diphtheria/Pertussis/Tetanus Vacc (Boostrix Vaccine Inj) 0.5 ml IM .ONCE ONE Stop: 05/14/18 16:01 Ephedrine Sulfate (Ephedrine/Ns Syringe) 10 mg IV.PUSH UNSCH PRN PRN Reason: SEE LABEL COMMENTS Stop: 05/14/18 17:21 Fentanyl Citrate (Fentanyl Inj) 50 mcg IV.PUSH Q1H PRN PRN Reason: Pain Scale 3 - 5 Fentanyl Citrate (Fentanyl Inj) 100 mcg IV.PUSH Q1H PRN PRN Reason: PAIN SCALE 6 TO 10 Last Admin: 05/13/18 15:23 Dose: 100 mcg Lactated Ringer's (Lr 1000 Ml Inj) 1,000 mls @ 125 mls/hr IV.CONT .Q8H [facility] Last Infusion: 05/13/18 19:21 Dose: Infused Lactated Ringer's (Lr 1000 Ml Inj) 1,000 mls @ 3,000 mls/hr IV.SIG UNSCH PRN PRN Reason: compromise or epidural Last Infusion: 05/13/18 18:10 Dose: Infused Sodium Chloride (Ns Inj) 500 mls @ 1,000 mls/hr IV.SIG UNSCH PRN PRN Reason: SEE LABEL COMMENTS Sodium Chloride (Ns Inj) 1,000 mls @ 100 mls/hr IV.CONT .Q10H PRN PRN Reason: SEE LABEL COMMENTS Oxytocin (Pitocin 30 Units/Ns 500 Ml Premix) 30 units in 500 mls @ 2 mls/hr IV.CONT TITRATE PRN; Protocol PRN Reason: For induction of labor Fentanyl/Bupivacaine/Sodium Chlor (Fentanyl 2 Mcg-Bupiv 0.125% Epi) 150 mls @ 10 mls/hr EPIDURAL PRN PRN PRN Reason: for Labor Pain Last Admin: 05/13/18 18:07 Dose: 10 mls/hr Oxytocin (Pitocin 30 Units/Ns 500 Ml Premix) 30 units in 500 mls @ 100 mls/hr IV.CONT UNSCH PRN PRN Reason: Heavy bleeding Ibuprofen (Motrin) 800 mg PO Q8H PRN PRN Reason: For Cramping Last Admin: 05/14/18 03:06 Dose: 800 mg Lactulose (Lactulose Liq) 30 ml PO DAILY PRN PRN Reason: SEVERE CONSITIPATION Lidocaine HCl (Xylocaine 1% Inj) 0.1 ml I-DERMAL PRN PRN PRN Reason: For IV start Stop: 05/16/18 04:14 Lidocaine HCl (Xylocaine 1% Inj) 10 ml INFILTRATN PRN PRN PRN Reason: For episiotomy repair Stop: 05/15/18 04:14 Last Admin: 05/14/18 00:23 Dose: 10 ml Measles/Mumps/Rubella Vaccine Live (M-M-R Ii Vaccine Inj) 0.5 ml SQ .ONCE ONE Stop: 05/14/18 16:01 Mineral Oil (Muri-Lube Oil) 10 ml TOPICAL PRN PRN PRN Reason: PRN perineal massage Last Admin: 05/14/18 00:23 Dose: 10 ml Miscellaneous Information (Misc Information) 1 each OTHER UNSCH PRN PRN Reason: SEE LABEL COMMENTS Stop: 05/14/18 17:21 Miscellaneous Information (Misc Information) 1 each OTHER UNSCH PRN PRN Reason: SEE LABEL COMMENTS Stop: 05/14/18 17:21 Naloxone HCl (Narcan Inj) 0.1 mg IV.PUSH Q2M PRN PRN Reason: for opiate reversal Naloxone HCl (Narcan Inj) 0.1 mg IV.PUSH Q2M PRN PRN Reason: for opiate reversal Ondansetron HCl (Zofran Odt) 4 mg PO Q6H PRN PRN Reason: NAUSEA OR VOMITING Oxycodone/Acetaminophen (Percocet 5/325 Mg) 1 tab PO Q4H PRN PRN Reason: PAIN SCALE 3 TO 5 Senna/Docusate Sodium (Taina-Colace) 1 tab PO BID [facility] Sennosides (Senokot) 17.2 mg PO Q12H PRN PRN Reason: Moderate Constipation Sodium Chloride (Ns Flush) 2 ml IV.FLUSH BID [facility] Sodium Chloride (Ns Flush) 2 ml IV.FLUSH PRN PRN PRN Reason: FLUSH AFTER USING IV ACCESS Witch Demar/Glycerin (Tucks Pads) 1 applicatio RECTAL QID PRN PRN Reason: HEMORRHOIDS Last Admin: 05/14/18 03:06 Dose: 1 applicatio Zolpidem Tartrate (Ambien) 5 mg PO HS PRN PRN Reason: SLEEP Assessment and Plan - Diagnosis (1) 38 weeks gestation of Code(s): Z3A.38 - 38 weeks gestation of Status: Acute Plan: 22-year-old female delivered vis vacuum assist delivery at 38/6 weeks and is PPD#0. Progressing normally and waiting for flatus/BM. Lochia reducing and normal. Pt is . 1. Routine care -Percocet, tylenol and Motrin PRN -Witch demar PRN -Encourage ambulation and OOB -Advised about pelvic rest x6 weeks -Pt is , will need to see -Pt considering contraception options -Pt to f/u with PCP 6 weeks post discharge Pt DARIEN Roberson
[2018-05-14] MEDS: Senna/Docusate Sodium 8.6/50 MG Tablet PO SCH (09:01)
[2018-05-14] MEDS ORDERED: Diphtheria/Tetanus/Pertussis Vaccine Inj 0.5 ML Syringe IM ONE (16:00)
[2018-05-14] MEDS ORDERED: Measles/Mumps/Rubella Vaccine Inj 0.5 ML Vial SQ ONE (16:00)
--- NOTE | 2018-05-14 17:10 | P.PNADD ---
Addendum to Inpatient Note Reason for Addendum: Additional Documentation Additional information: Responded to page 16:20PM: Nurse states that she has noticed continuous, but waxing and waning "small trickle" of bleeding since this morning. Nursing staff states that earlier today the noticed small amount of bright red blood on her pad, which increased after uterine massage. This afternoon she noticed a continuous trickle of blood and would like patient to be evaluated. Nurse states that she is not experiencing copious amounts of bleeding. She is also experiencing significant vaginal swelling, but denies significant abdominal cramping at this time. Nurse states that uterus did not feel boggy on abdominal exam. Patient seen and examined by resident team at 16:35PM S: Patient states that she has been passing a small amount of blood consistently since her delivery last night. She notes that she is not soaking the pads. She also complains of moderate vaginal soreness and swelling. Patient under went a midline episiotomy and 3rd degree laceration repair during the delivery. O: VS WNL Pelvic exam: Swelling of bilateral vulva and labial folds. No blood on pad. Internal inspection of vaginal canal revealed laceration repair intact with small amount of trickling blood, likely coming from apex of laceration repair. No clots noted. A/P: Continue to monitor bleeding. Apply ice to affected area. Nursing staff to call residents if bleeding worsens. The exam, history, and the medical decision-making described in the above note were completed with the assistance of the resident physician. I reviewed and agree with the findings presented. I attest that I had a [id number] encounter with the patient on the same day, and personally performed and documented my assessment and findings in the medical record.
[2018-05-15] MEDS: Senna/Docusate Sodium 8.6/50 MG Tablet PO SCH ×3 (03:06→21:48)
--- NOTE | 2018-05-15 07:53 | P.PNOB ---
Subjective Post day: 1 Interval history: Ms. Fontenot had no acute events overnight. Yesterday afternoon she had a small amount of vaginal bleeding from her laceration repair that has appeared to resolve. Lochia is reducing and volume with no clots. Mother is ambulating tolerating p.o., voiding, stooling, and pain is controlled with ibuprofen. Mother is still considering control options. She is feeding both breast and formula at this point. Would like to discharge today if baby is stable to go. Denies chest pain, shortness of breath, nausea, vomiting, diarrhea, fever, chills, abdominal pain, or leg pain. Objective Vital Signs/I&O: Vital Signs 05/14/18 20:12 Temperature 97.9 F Pulse Rate 102 H Respiratory Rate 18 Blood Pressure 110/58 L Intake & Output 05/14/18 05/15/18 05/15/18 18:59 06:59 18:59 Weight 101 kg Other: Weight On Admission 101 kg Result Diagrams: 05/13/18 04:10 Objective Remarks: GENERAL: Well-nourished, well-developed patient. CARDIOVASCULAR: Regular rate and rhythm without murmurs, gallops, or rubs. RESPIRATORY: Breath sounds equal bilaterally. No accessory muscle use. ABDOMEN/GI: Abdomen soft, non-tender. Fundus: Firm, non-tender at umbilicus. GENITOURINARY: Light to moderate bleeding. EXTREMITIES: No cyanosis or edema, non-tender, without signs of DVT. Medications and IVs: Active Medications Acetaminophen (Tylenol) 650 mg PO Q4H PRN PRN Reason: PAIN SCALE 1 TO 2 Al Hydroxide/Mg Hydroxide (Milk Of Hernandez Schumacher) 30 ml PO Q12H PRN PRN Reason: Mild Constipation Benzocaine (Americaine 20% Top [place]) 1 spray TOPICAL Q4H PRN PRN Reason: For Perineum Discomfort Last Admin: 05/14/18 03:06 Dose: 1 spray Bisacodyl (Dulcolax Supp) 10 mg RECTAL DAILY PRN PRN Reason: SEVERE CONSITIPATION Fentanyl Citrate (Fentanyl Inj) 50 mcg IV.PUSH Q1H PRN PRN Reason: Pain Scale 3 - 5 Fentanyl Citrate (Fentanyl Inj) 100 mcg IV.PUSH Q1H PRN PRN Reason: PAIN SCALE 6 TO 10 Last Admin: 05/13/18 15:23 Dose: 100 mcg Lactated Ringer's (Lr 1000 Ml Inj) 1,000 mls @ 125 mls/hr IV.CONT .Q8H [facility] Last Infusion: 05/13/18 19:21 Dose: Infused Lactated Ringer's (Lr 1000 Ml Inj) 1,000 mls @ 3,000 mls/hr IV.SIG UNSCH PRN PRN Reason: compromise or epidural Last Infusion: 05/13/18 18:10 Dose: Infused Sodium Chloride (Ns Inj) 500 mls @ 1,000 mls/hr IV.SIG UNSCH PRN PRN Reason: SEE LABEL COMMENTS Sodium Chloride (Ns Inj) 1,000 mls @ 100 mls/hr IV.CONT .Q10H PRN PRN Reason: SEE LABEL COMMENTS Oxytocin (Pitocin 30 Units/Ns 500 Ml Premix) 30 units in 500 mls @ 2 mls/hr IV.CONT TITRATE PRN; Protocol PRN Reason: For induction of labor Fentanyl/Bupivacaine/Sodium Chlor (Fentanyl 2 Mcg-Bupiv 0.125% Epi) 150 mls @ 10 mls/hr EPIDURAL PRN PRN PRN Reason: for Labor Pain Last Admin: 05/13/18 18:07 Dose: 10 mls/hr Oxytocin (Pitocin 30 Units/Ns 500 Ml Premix) 30 units in 500 mls @ 100 mls/hr IV.CONT UNSCH PRN PRN Reason: Heavy bleeding Ibuprofen (Motrin) 800 mg PO Q8H PRN PRN Reason: For Cramping Last Admin: 05/15/18 01:29 Dose: 800 mg Lactulose (Lactulose Liq) 30 ml PO DAILY PRN PRN Reason: SEVERE CONSITIPATION Lidocaine HCl (Xylocaine 1% Inj) 0.1 ml I-DERMAL PRN PRN PRN Reason: For IV start Stop: 05/16/18 04:14 Mineral Oil (Muri-Lube Oil) 10 ml TOPICAL PRN PRN PRN Reason: PRN perineal massage Last Admin: 05/14/18 00:23 Dose: 10 ml Naloxone HCl (Narcan Inj) 0.1 mg IV.PUSH Q2M PRN PRN Reason: for opiate reversal Naloxone HCl (Narcan Inj) 0.1 mg IV.PUSH Q2M PRN PRN Reason: for opiate reversal Ondansetron HCl (Zofran Odt) 4 mg PO Q6H PRN PRN Reason: NAUSEA OR VOMITING Oxycodone/Acetaminophen (Percocet 5/325 Mg) 1 tab PO Q4H PRN PRN Reason: PAIN SCALE 3 TO 5 Senna/Docusate Sodium (Taina-Colace) 1 tab PO BID ON LICENSE OF [facility] Last Admin: 05/15/18 03:06 Dose: Not Given Sennosides (Senokot) 17.2 mg PO Q12H PRN PRN Reason: Moderate Constipation Sodium Chloride (Ns Flush) 2 ml IV.FLUSH BID ON LICENSE OF [facility] Last Admin: 05/14/18 22:43 Dose: Not Given Sodium Chloride (Ns Flush) 2 ml IV.FLUSH PRN PRN PRN Reason: FLUSH AFTER USING IV ACCESS Witch Demar/Glycerin (Tucks Pads) 1 applicatio RECTAL QID PRN PRN Reason: HEMORRHOIDS Last Admin: 05/14/18 03:06 Dose: 1 applicatio Zolpidem Tartrate (Ambien) 5 mg PO HS PRN PRN Reason: SLEEP Assessment and Plan - Diagnosis (1) 38 weeks gestation of Code(s): Z3A.38 - 38 weeks gestation of Status: Acute Plan: 22-year-old female delivered vis vacuum assist delivery at 38/6 weeks and is PPD#1. Progressing normally with pin controlled on ibuprofen and has had a BM and is ambulating. Lochia reducing and normal. Pt is and bottle feeding. Small bleed from episotomy appears to have resolved. 1. Routine care -Tylenol and Motrin PRN -Witch demar PRN -Encourage ambulation and OOB -Advised about pelvic rest x6 weeks -Pt is and bottle feeding at this point -Pt considering contraception options -Pt to f/u with PCP 6 weeks post discharge Pt DW Dr Carroll - Plan The exam, history, and the medical decision-making described in the above note were completed with the assistance of the resident physician. I reviewed and agree with the findings presented. I attest that I had a [id number] encounter with the patient on the same day, and personally performed and documented my assessment and findings in the medical record.
[2018-05-16 08:20] VITALS: BP 106/58
[2018-05-16 08:21] VITALS: PULSE 80; RESP 16; TEMP 98.1
--- NOTE | 2018-05-16 08:35 | P.PNOB ---
Subjective Post day: 2 Interval history: Ms. Fontenot had no acute events overnight. There has been no further bleeding from her episiotomy. She took ibuprofen yesterday due to low back pain. Lochia is reducing and volume with no clots. Mother is ambulating tolerating p.o., voiding, stooling, and pain is controlled with ibuprofen. Mother is still considering control options. She is feeding both breast and formula at this point. Would like to discharge today if baby is stable to go. Denies chest pain, shortness of breath, nausea, vomiting, diarrhea, fever, chills, abdominal pain, or leg pain. Objective Vital Signs/I&O: Vital Signs 05/15/18 20:30 05/16/18 08:00 Temperature 98.2 F 98.1 F Pulse Rate 91 H 80 Respiratory Rate 18 16 Blood Pressure 111/65 106/58 L Result Diagrams: 05/13/18 04:10 Objective Remarks: GENERAL: Well-nourished, well-developed patient. CARDIOVASCULAR: Regular rate and rhythm without murmurs, gallops, or rubs. RESPIRATORY: Breath sounds equal bilaterally. No accessory muscle use. ABDOMEN/GI: Abdomen soft, non-tender. Fundus: Firm, non-tender at umbilicus. GENITOURINARY: Light to moderate bleeding. EXTREMITIES: No cyanosis or edema, non-tender, without signs of DVT. Medications and IVs: Active Medications Acetaminophen (Tylenol) 650 mg PO Q4H PRN PRN Reason: PAIN SCALE 1 TO 2 Al Hydroxide/Mg Hydroxide (Milk Of Hernandez Schumacher) 30 ml PO Q12H PRN PRN Reason: Mild Constipation Benzocaine (Americaine 20% Top [place]) 1 spray TOPICAL Q4H PRN PRN Reason: For Perineum Discomfort Last Admin: 05/14/18 03:06 Dose: 1 spray Bisacodyl (Dulcolax Supp) 10 mg RECTAL DAILY PRN PRN Reason: SEVERE CONSITIPATION Fentanyl Citrate (Fentanyl Inj) 50 mcg IV.PUSH Q1H PRN PRN Reason: Pain Scale 3 - 5 Fentanyl Citrate (Fentanyl Inj) 100 mcg IV.PUSH Q1H PRN PRN Reason: PAIN SCALE 6 TO 10 Last Admin: 05/13/18 15:23 Dose: 100 mcg Lactated Ringer's (Lr 1000 Ml Inj) 1,000 mls @ 125 mls/hr IV.CONT .Q8H [facility] Last Infusion: 05/13/18 19:21 Dose: Infused Lactated Ringer's (Lr 1000 Ml Inj) 1,000 mls @ 3,000 mls/hr IV.SIG UNSCH PRN PRN Reason: compromise or epidural Last Infusion: 05/13/18 18:10 Dose: Infused Sodium Chloride (Ns Inj) 500 mls @ 1,000 mls/hr IV.SIG UNSCH PRN PRN Reason: SEE LABEL COMMENTS Sodium Chloride (Ns Inj) 1,000 mls @ 100 mls/hr IV.CONT .Q10H PRN PRN Reason: SEE LABEL COMMENTS Oxytocin (Pitocin 30 Units/Ns 500 Ml Premix) 30 units in 500 mls @ 2 mls/hr IV.CONT TITRATE PRN; Protocol PRN Reason: For induction of labor Fentanyl/Bupivacaine/Sodium Chlor (Fentanyl 2 Mcg-Bupiv 0.125% Epi) 150 mls @ 10 mls/hr EPIDURAL PRN PRN PRN Reason: for Labor Pain Last Admin: 05/13/18 18:07 Dose: 10 mls/hr Oxytocin (Pitocin 30 Units/Ns 500 Ml Premix) 30 units in 500 mls @ 100 mls/hr IV.CONT UNSCH PRN PRN Reason: Heavy bleeding Ibuprofen (Motrin) 800 mg PO Q8H PRN PRN Reason: For Cramping Last Admin: 05/16/18 05:01 Dose: 800 mg Lactulose (Lactulose Liq) 30 ml PO DAILY PRN PRN Reason: SEVERE CONSITIPATION Mineral Oil (Muri-Lube Oil) 10 ml TOPICAL PRN PRN PRN Reason: PRN perineal massage Last Admin: 05/14/18 00:23 Dose: 10 ml Naloxone HCl (Narcan Inj) 0.1 mg IV.PUSH Q2M PRN PRN Reason: for opiate reversal Naloxone HCl (Narcan Inj) 0.1 mg IV.PUSH Q2M PRN PRN Reason: for opiate reversal Ondansetron HCl (Zofran Odt) 4 mg PO Q6H PRN PRN Reason: NAUSEA OR VOMITING Oxycodone/Acetaminophen (Percocet 5/325 Mg) 1 tab PO Q4H PRN PRN Reason: PAIN SCALE 3 TO 5 Senna/Docusate Sodium (Taina-Colace) 1 tab PO BID [facility] Last Admin: 05/15/18 21:48 Dose: 1 tab Sennosides (Senokot) 17.2 mg PO Q12H PRN PRN Reason: Moderate Constipation Sodium Chloride (Ns Flush) 2 ml IV.FLUSH BID [facility] Last Admin: 05/16/18 01:09 Dose: Not Given Sodium Chloride (Ns Flush) 2 ml IV.FLUSH PRN PRN PRN Reason: FLUSH AFTER USING IV ACCESS Witch Demar/Glycerin (Tucks Pads) 1 applicatio RECTAL QID PRN PRN Reason: HEMORRHOIDS Last Admin: 05/14/18 03:06 Dose: 1 applicatio Zolpidem Tartrate (Ambien) 5 mg PO HS PRN PRN Reason: SLEEP Assessment and Plan - Diagnosis (1) 38 weeks gestation of Code(s): Z3A.38 - 38 weeks gestation of Status: Acute Plan: 22-year-old female delivered vis vacuum assist delivery at 38/6 weeks and is PPD#2. Progressing normally with pain controlled on ibuprofen and has had a BM and is ambulating. Lochia reducing and normal. Pt is and bottle feeding. Small bleed from episotomy is resolved. 1. Routine care -Tylenol and Motrin PRN -Witch demar PRN -Encourage ambulation and OOB -Advised about pelvic rest x6 weeks -Pt is and bottle feeding at this point -Pt considering contraception options -Pt to f/u with PCP 6 weeks post discharge Pt DARIEN Galarza
== END 2018-05-16 16:45 | disposition home or self-care (01) ==
LOC: HOBED 03:15 → H2E 04:21 → H1EA 05-14 07:28
PROVIDERS: ADMIT Obstetrics & Gynecology; ATTEND Obstetrics & Gynecology